=== PATIENT | female | born 1970 | race Caucasian/White ===

== ENCOUNTER → 2017-08-23 | Outpatient (CLI) | payer OTHER ==
[~2017-08-23] MED LIST: ACETAMINOPHEN325 M3 PO; ALBUTEROL SULF8.5 GM IH; AMOX TR-K CLV1 EAC4 PO; ANTACID EXTRA300 MG PO; BACLOFEN10 MG PO; BISAC-EVAC10 MG PR; CARDIZEM CD180 MG PO; CARDIZEM LA120 MG PO; CELEXA20 MG PO; CLINDAMYCIN HC150 MG PO; GABAPENTIN300 MG PO; GENTLE LAXATIVE5 M1 PO; KEPPRA1000 MG PO; LASIX20 MG PO; LEVAQUIN750 MG PO; LEVOFLOXACIN750 MG PO; LIPITOR20 MG PO; LIPITOR40 MG PO; LOVENOX100 MG/1 M SC; MOTRIN800 MG PO; NEURONTIN300 MG PO; NOHOMEMEDS; PERIDEX1 ML MM; PREDNISONE50 MG PO; PREVACID SOLUTA30 MG PO; TAPAZOLE10 MG PO; ULTRAM50 MG PO; XARELTO20 MG PO; ZOFRAN4 MG PO
== END | disposition home or self-care (01) ==
LOC: RAD 09:33
DX: N94.89 Other specified conditions associated with female genital organs and menstrual cycle (principal)
CPT/HCPCS: 76856

== ENCOUNTER → 2017-10-11 | Outpatient (CLI) | payer OTHER | LOC: MRI 10:25 → RAD 11:00 | DX: N85.8 Other specified noninflammatory disorders of uterus (principal); R19.00 Intra-abdominal and pelvic swelling, mass and lump, unspecified site | CPT/HCPCS: 72197 ==

== ENCOUNTER → 2018-01-01 | Outpatient (CLI) | payer OTHER | LOC: RAD 08:51 | DX: N85.2 Hypertrophy of uterus (principal); N88.8 Other specified noninflammatory disorders of cervix uteri | CPT/HCPCS: 76856 ==